=== PATIENT | female | born 1950 | race Caucasian/White ===

== ENCOUNTER → 2019-01-11 | Outpatient (CLI) | payer MEDICARE, OTHER, SELFPAY ==
--- NOTE | 2019-01-11 12:06 | BI_ITS ---
MAMMOGRAPHY - BILATERAL SCREENING 3-D TOMOSYNTHESIS REASON FOR EXAM: Female, 68 years old. Bilateral Screening 3-D tomosynthesis PERTINENT HISTORY: No significant family history. TECHNIQUE: 2-D mammograms and 3-D Tomosynthesis of the breast (s) were performed. CAD was performed. COMPARISON: 08/24/2016 FINDINGS: The breast composition is composed of scattered fibroglandular density. Scattered benign calcifications are seen. No dense spiculated masses or suspicious microcalcifications are identified. No architectural distortion is identified. There is no skin thickening or retraction. There has been no significant change since the prior study. BI/SCREEN MAMM (CAD) W/MAMIE BILAT IMPRESSION: No mammographic signs of malignancy. Routine yearly mammograms recommended. ASSESSMENT CATEGORY: BIRADS Category 1: Negative. A letter regarding these results will be sent to the patient by the facility within 30 days. FOLLOW UP RECOMMENDATION: Yearly follow up mammogram recommended. (A) Approximately 10% of breast cancers are not detected by mammography. A normal mammogram should not delay biopsy of a clinically suspicious abnormality. Electronically Signed: Avtar Espinosa MD at 12:51 EDT , Service support ,
== END | disposition home or self-care (01) ==
LOC: OPBI 12:04
PROVIDERS: Referring Provider Obstetrics & Gynecology Gynecology; Visit Provider Obstetrics & Gynecology Gynecology
DX: Z12.31 Encounter for screening mammogram for malignant neoplasm of breast (principal)
CPT/HCPCS: 77063; 77067

== ENCOUNTER → 2019-07-05 09:10 | Outpatient (CLI) | payer MEDICARE, OTHER, SELFPAY | PROVIDERS: PCP Family Medicine; Referring Provider Specialist; Visit Provider Specialist | DX: Z01.812 Encounter for preprocedural laboratory examination (principal) | CPT/HCPCS: 36415; 82040 ==

== ENCOUNTER → 2022-07-29 | Outpatient (CLI) | payer MEDICARE, OTHER, SELFPAY ==
--- NOTE | 2022-07-29 12:24 | BI_ITS ---
MAMMOGRAPHY - BILATERAL SCREENING REASON FOR EXAM: Female, 72 years old. Routine annual screening examination. PERTINENT HISTORY: Non-contributory. Remote left stereotactic breast biopsy. TECHNIQUE: Digital bilateral breast mamie (3D mammographic acquisition) in the CC and MLO projections. 2-D mediolateral oblique (MLO) and craniocaudad (CC) views of both breasts were obtained. CAD: Full Field Digital Mammography with Computer Added Detection was performed. COMPARISON: Comparison is made with prior examination dated 01/11/2019 and 08/24/2016. FINDINGS: Breast Composition: There are scattered areas of fibroglandular density. There are no dominant masses or suspicious calcifications. No other significant abnormalities are identified. There has been no significant change since the prior study. BI/SCRN MAMM (CAD)W/MAMIE BILAT IMPRESSION: Stable bilateral screening mammogram. Yearly follow-up mammogram recommended. (A) ASSESSMENT CATEGORY: BIRADS Category 1: Negative. A letter regarding these results will be sent to the patient by the facility within 30 days. Approximately 10% of breast cancers are not detected by mammography. A normal mammogram should not delay biopsy of a clinically suspicious abnormality. [id number] Electronically Signed: Jack Flores MD at 13:36 EST ,
--- NOTE | 2022-07-29 12:31 | BD_ITS ---
STUDY: DUAL ENERGY X-RAY ABSORPTIOMETRY / DXA REASON FOR EXAM: Female, 72 years old. [id number] TECHNIQUE: Bone Mineral Density (BMD) measurements of lumbar spine and bilateral hips were obtained. COMPARISON: Comparison is made with prior examination 09/18/2013. FINDINGS: Lumbar Spine (L1-L4): g/cm2 (0.876) / T-score (-1.7) / Z-score (0.5) Findings are suggestive of osteopenia with a moderate fracture risk. Left Femur Total: g/cm2 (0.765) / T-score (-1.5) / Z-score (0.1) Left Femoral Neck: g/cm2 (0.613) / T-score (-2.1) / Z-score (-0.3) Right Femur Total: g/cm2 (0.718) / T-score (-1.8) / Z-score (-0.3) Right Femoral Neck: g/cm2 (0.572) / T-score (-2.5) / Z-score (-0.6) The T-Scores on the most recent prior examination were: Lumbar Spine (L1-L4): There has been worsening of bone density since the previous examination. Left Femur Total: which represents a worsening of 7.6%. Right Femur Total: which represents a worsening of 3.1%. BD/Dexa Bone Density Study IMPRESSION: The patient is considered osteopenic as outlined below according to World [employer] Organization (WHO) criteria with a high fracture risk. There has been worsening of bone density since the previous examination. Reference Information: The T-score is the number of standard deviations above or below the standard which is normal for young adults at their peak bone mineral density. The World Health Organization (WHO) interprets the T-scores as follows: Above -1 Normal bone density Between -1 and -2.5 Osteopenia Equal to / or below -2.5 Osteoporosis As a practical clinical guideline, osteopenia may be graded as follows: Mild -1 through -1.5 Moderate -1.6 through -2.0 Severe -2.1 through -2.4 The Z-score is the number of standard deviations above or below age-matched controls. A Z-score of less than -1.5 would be considered abnormal. References: 1. NIH Osteoporosis and Related Bone Diseases www osteo.org 2. International Society for Clinical Densitometry www iscd.org 3. National Osteoporosis Foundation www nof.org Electronically Signed: Jack Flores MD at 14:53 EST ,
== END | disposition home or self-care (01) ==
LOC: OPBD 12:22
PROVIDERS: PCP Family Medicine; Visit Provider Obstetrics & Gynecology Gynecology
DX: Z01.419 Encounter for gynecological examination (general) (routine) without abnormal findings (principal); Z12.31 Encounter for screening mammogram for malignant neoplasm of breast; N81.10 Cystocele, unspecified; Z13.820 Encounter for screening for osteoporosis; Z78.0 Asymptomatic menopausal state
CPT/HCPCS: 77063; 77067; 77080

== ENCOUNTER 2024-07-03 18:02 | Emergency (ER) | payer MEDICARE, OTHER, SELFPAY ==
[2024-07-03 18:02] VITALS: BP 114/98; PULSE 61; RESP 16; TEMP 36.8; O2SAT 99; BMI 27.6
--- NOTE | 2024-07-03 18:13 | RAD_ITS ---
STUDY: X-RAY - LEFT WRIST REASON FOR EXAM: Female, 73 years old. INJURY TECHNIQUE: 3 view(s) of the wrist were obtained. COMPARISON: None. FINDINGS: Normal visualized distal radius and ulna. Mildly narrowed radiocarpal articulation. Normal distal radioulnar articulation. Normal carpal bones. Normal carpal articulations. Degenerative changes of the carpometacarpal articulation of the thumb. Normal second through fifth carpometacarpal articulations. Normal visualized metacarpal bones. The soft tissue structures are unremarkable. RAD/Wrist min 3 Views IMPRESSION: Degenerative change. No acute fracture or dislocation Electronically Signed: Chilo Coleman MD at 18:37 EST ,
--- NOTE | 2024-07-03 18:13 | RAD_ITS ---
STUDY: X-RAY - LEFT ELBOW REASON FOR EXAM: Female, 73 years old. FALL TECHNIQUE: 3 view(s) of the elbow. COMPARISON: None. FINDINGS: Normal visualized humerus, radius and ulna. Normal radiocapitellar and ulnotrochlear articulations. The soft tissue structures are unremarkable. RAD/Elbow min 3 Views IMPRESSION: Normal x-ray examination of the elbow. Electronically Signed: Chilo Coleman MD at 18:33 EST ,
--- NOTE | 2024-07-03 20:50 | EDS_ITS ---
HPI History of Present Illness Chief Complaint: Upper Extremity Injury Narrative Narrative: Patient is a 73-year-old female with no known significant past medical history who presents to the emergency department the chief complaint of left wrist pain. Patient states that she slipped and fell on ice when she attempted to catch herself had pain in her left wrist. Patient denies hitting her head denies losing consciousness she remembers entire event. Patient states that she did not taken thing for pain prior to arrival. PFSH PFS Medical History Compound fracture Allergy/AdvReac Type Severity Reaction Status Date / Time No Known Allergies Allergy Verified 07/03/24 18:04 Surgical History History of facial surgery H/O: hysterectomy Knee joint replacement status Social History Smoking Status: Never smoker ROS ROS ED ROS Narrative Constitutional: Denies fevers, chills, headaches, lightness, dizziness Eyes: Denies change in vision double vision blurry vision Cardiovascular: Denies chest pain or palpitations Respiratory: Denies coughing wheezing shortness of breath Abdomen: Denies abdominal pain nausea vomit diarrhea Neurological: Denies any numbness, weakness, tingling Musculoskeletal: Complains of left wrist pain as noted above Skin: Denies any rashes or lesions EXAM Physical Exam Narrative Exam Narrative: General: Patient lying in bed rest comfortably did not appear to be acute distress Head: Atraumatic, normocephalic Eyes: PERRL bilateral, EOMI bilateral, no conjunctival injection noted Neck: Soft, supple, trachea midline, no tense palpation midline of the cervical spine Cardiovascular: Regular rate and rhythm no murmurs gallops rubs noted Respiratory: Clear to auscultation bilaterally no rales rhonchi or wheezes noted Abdomen: Soft, nondistended, nontender to palpation Musculoskeletal: No tenderness palpation midline of the thoracolumbar spine, patient does have tenderness palpation over the left distal radius all of the bony prominences and joints taken to full range of motion no pain elicited Extremities: Radial pulses +2/4 in the bilateral upper extremities, +5/5 strength noted in the bilateral upper and lower extremities, patient was able to give me the okay sign thumbs up and oppose her thumb to her pinky is bilaterally finding difficulty Neurological: Patient follow commands knew that she was at [facility] year is 2024. Sensation grossly intact in the median ulnar radial nerve distributions bilaterally Skin: Warm, dry, intact Const Vital Signs: 07/03/24 18:02 Temperature 98.2 F Temperature Source Oral Pulse Rate 61 Respiratory Rate 16 Blood Pressure 114/98 H Blood Pressure Mean 103 Pulse Ox 99 Oxygen Delivery Method Room Air MDM MDM MDM Narrative Medical decision making narrative: Patient is a 73-year-old female who presented to the emergency department the chief complaint of left wrist pain after mechanical fall slipping on ice. On the differential diagnose includes Melamin to musculoskeletal strain, distal radius fracture, ulnar fracture. Once workup is obtained reviewed she will be reevaluated. Patient states that she does not want a thing for pain at this point time. Patient's x-ray of her wrist reviewed by myself and by radiology showed no acute fracture dislocation degenerative changes noted. Patient's elbow x-ray on the left side reviewed by myself and by radiology showed no acute fracture or dislocation. Did discuss results with the patient she was advised to ice elevate and rotate Tylenol and ibuprofen [id number] for pain control. She is encouraged return with worsening symptoms or concerns otherwise she is to follow-up with h er primary care physician outpatient setting. She is agreeable this plan all question concerns answered she was discharged home in stable condition. Radiography Diagnostic Testing: Clinical Impression(s) from Imaging Studies Elbow X-Ray 07/03/24 18:13 IMPRESSION: Normal x-ray examination of the elbow. Electronically Signed: Chilo Coleman MD at 18:33 EST , Wrist X-Ray 07/03/24 18:13 IMPRESSION: Degenerative change. No acute fracture or dislocation Electronically Signed: Chilo Coleman MD at 18:37 EST , Discharge Plan Triage Chief Complaint: Upper Extremity Injury ED Provider: Srikanth Barrett Dx/Rx/DC Orders Clinical Impression: Fall, Left wrist pain Primary Care Provider: Sondra Hilton Referrals: Sondra Hilton PA [Primary Care Provider] - Activity Restrictions/Additional Instructions: Follow-up with your doctor in outpatient setting. Ice, rotate Tylenol and ibuprofen [id number]. Your x-rays did not show anything broken. Print Language: Sammarinese Disposition Disposition: Home, Self Care
== END 2024-07-03 21:11 | disposition home or self-care (01) ==
PROVIDERS: Emergency Provider Emergency Medicine; Visit Provider Emergency Medicine
DX: M25.532 Pain in left wrist (principal); W00.9XXA Unspecified fall due to ice and snow, initial encounter
CPT/HCPCS: 73080; 73110; 99283

== ENCOUNTER → 2025-06-04 | Outpatient (CLI) | payer MEDICARE, OTHER, SELFPAY ==
--- NOTE | 2025-06-04 11:46 | BI_ITS ---
EXAM: SCRN MAMM (CAD)W/MAMIE BILAT DATE: 06/04/2025 CLINICAL HISTORY: F, Age 74 y/o , SCREENING No family history. Remote left stereotactic breast biopsy. TECHNIQUE: Procedure Code: [id number] Modality: MG Procedure: SCRN MAMM (CAD)W/MAMIE BILAT COMPARISON: Prior exam(s) dated July 29, 2022.. FINDINGS: TISSUE DENSITY: There are scattered areas of fibroglandular density. Bilateral Breast Mammographic Findings: No significant masses, calcifications or other abnormalities are identified. No suspicious masses, areas of developing architectural distortion, or suspicious calcifications. There has been no significant interval change. BI/SCRN MAMM (CAD)W/MAMIE BILAT IMPRESSION: Stable bilateral screening mammogram. OVERALL FINAL ASSESSMENT BI-RADS 1: NEGATIVE. RECOMMENDATION: Routine annual follow-up in 1 Year Additional Recommendation none A letter with findings and recommendations will be mailed to the patient. Reading Location: [facility]
== END | disposition home or self-care (01) ==
LOC: OPBI 11:45
PROVIDERS: Referring Provider Obstetrics & Gynecology Gynecology; Visit Provider Obstetrics & Gynecology Gynecology
DX: Z12.31 Encounter for screening mammogram for malignant neoplasm of breast (principal)
CPT/HCPCS: 77063; 77067